=== PATIENT | female | born 1960 | race Caucasian/White ===

== ENCOUNTER 2022-07-31 07:38 | Inpatient (IN) | payer MEDICAID ==
[~2022-07-31 07:38] MED LIST: Bupivacaine 0.5% 50 ML MDV ONE; Dexamethasone 4 MG/ML SDV ONE; Glycopyrrolate 0.2 MG/ML 5 ML MDV ONE; Lidocaine 1% with EPINEPHrine 1:100,000 50 ML MDV ONE; Meropenem 500 MG SDV ONE; Neostigmine Methylsulfate 1 MG/ML 5 ML Syringe ONE; Ondansetron 4 MG/2 ML SDV ONE; Propofol 200 MG/20 ML SDV ONE; Rocuronium 50 MG/5 ML Vial ONE; Succinylcholine 200 MG/10 ML MDV ONE; fentaNYL 100 MCG/2 ML SDV ONE; fentaNYL 250 MCG/5 ML SDV ONE
[2022-07-31] MEDS ORDERED: cefOXitin 2 GM in Sodium Chloride 0.9% 50 ML IV ONE (08:00)
[2022-07-31] MEDS ORDERED: Dextrose 5%-Lactated Ringers 1,000 ML IV SCH (08:00)
[2022-07-31] MEDS ORDERED: Naloxone 0.4 MG/ML SDV IVPUSH PRN (09:00)
[2022-07-31] MEDS ORDERED: Ketamine 15 MG in Sodium Chloride 0.9% 19.85 ML IV SCH (09:15)
[2022-07-31] MEDS ORDERED: Ketamine 500 MG/5 ML MDV IV SCH (09:15)
[2022-07-31] MEDS ORDERED: Midazolam 1 MG/ML 2 ML SDV ONE (10:01)
[2022-07-31] MEDS ORDERED: fentaNYL 250 MCG/5 ML SDV ONE (10:23)
[2022-07-31] MEDS ORDERED: Rocuronium 50 MG/5 ML Vial ONE (10:23)
[2022-07-31] MEDS ORDERED: Meropenem 500 MG SDV IRR ONE (10:58)
[2022-07-31] MEDS ORDERED: Lactated Ringers 1,000 ML ONE ×2 (11:05→11:43)
[2022-07-31] MEDS ORDERED: Sodium Chloride 0.9% 10 ML ONE (11:05)
[2022-07-31] MEDS ORDERED: Scopolamine 1.5 MG Transdermal Patch ONE (12:12)
[2022-07-31] MEDS ORDERED: Meperidine PF 100 MG/ML Syringe IM PRN (14:18)
[2022-07-31] MEDS ORDERED: Ondansetron 4 MG/2 ML SDV IVPUSH PRN (15:00)
[2022-07-31] MEDS ORDERED: diphenhydrAMINE 50 MG/ML SDV IVPUSH PRN (15:00)
[2022-07-31] MEDS ORDERED: Pantoprazole 40 MG Vial IVPUSH SCH (16:00)
[2022-07-31] MEDS: Acetaminophen 325 MG Tab PO SCH ×2 (16:55→21:24)
[2022-07-31] MEDS: cefOXitin 2 GM in Sodium Chloride 0.9% 50 ML IV SCH ×2 (16:55→21:22)
[2022-07-31] MEDS: fentaNYL 2,500 MCG in Sodium Chloride 0.9% 200 ML EPIDUR SCH (17:06)
[2022-07-31] MEDS: Dextrose 5%-Lactated Ringers 1,000 ML IV SCH (19:18)
[2022-07-31] MEDS: Naloxone 0.4 MG/ML SDV IV PRN (19:18)
[2022-07-31] MEDS: Tamsulosin 0.4 MG Cap.ER PO SCH (20:01)
[2022-08-01] MEDS: Dextrose 5%-Lactated Ringers 1,000 ML IV SCH ×2 (02:15→22:36)
[2022-08-01] MEDS: Naloxone 0.4 MG/ML SDV IV PRN (02:15)
[2022-08-01] MEDS: hydrOXYzine HCL 100 MG/2 ML SDV IM PRN ×2 (02:25→07:27)
[2022-08-01] MEDS: cefOXitin 2 GM in Sodium Chloride 0.9% 50 ML IV SCH ×4 (04:18→21:51)
[2022-08-01] MEDS: Acetaminophen 325 MG Tab PO SCH ×4 (05:21→21:51)
[2022-08-01] MEDS ORDERED: Dextrose 5%-Lactated Ringers 1,000 ML IV SCH (08:00)
[2022-08-01] MEDS: fentaNYL 2,500 MCG in Sodium Chloride 0.9% 200 ML EPIDUR SCH (08:46)
[2022-08-01] MEDS ORDERED: Dextrose 5%-Lactated Ringers 1,000 ML with Naloxone 0.4 MG IV SCH ×2 (09:15)
[2022-08-01] MEDS: Docusate Sodium 100 MG Cap PO SCH ×2 (09:29→20:15)
[2022-08-01] MEDS: Bisacodyl 5 MG Tab PO SCH ×2 (09:30→20:15)
[2022-08-01] MEDS ORDERED: Naloxone 0.4 MG/ML SDV IVPUSH PRN (11:28)
[2022-08-01] MEDS ORDERED: Naloxone 0.4 MG/ML SDV IV PRN (11:48)
[2022-08-01] MEDS ORDERED: NALOXONE IV SCH ×2 (12:00)
[2022-08-01] MEDS ORDERED: DEXTROSE 5% IV SCH ×2 (12:00)
[2022-08-01] MEDS ORDERED: LACTATED RINGERS IV SCH ×2 (12:00)
[2022-08-01] MEDS: Pantoprazole 40 MG Tab.CR PO SCH (16:58)
[2022-08-01] MEDS: Tamsulosin 0.4 MG Cap.ER PO SCH (20:15)
[2022-08-02] MEDS: hydrOXYzine HCL 100 MG/2 ML SDV IM PRN (01:17)
[2022-08-02] MEDS: Acetaminophen 325 MG Tab PO SCH ×3 (03:27→20:22)
[2022-08-02] MEDS ORDERED: Bupivacaine 0.5% 30 ML SDV ONE (06:35)
[2022-08-02] MEDS ORDERED: Meropenem 500 MG SDV ONE (06:35)
[2022-08-02] MEDS ORDERED: Lidocaine 1% with EPINEPHrine 1:100,000 50 ML MDV ONE (06:35)
[2022-08-02] MEDS ORDERED: HYDROmorphone/Normal Saline 6 MG/30 ML PCA Vial IV PRN (06:56)
[2022-08-02] MEDS ORDERED: Naloxone 0.4 MG/ML SDV IV PRN (07:00)
[2022-08-02] MEDS ORDERED: Ropivacaine 32 ML, dexAMETHasone 8 MG, EPINEPHrine 0.4 MG, Sodium Chloride 0.9% 45.6 ML NERVRT SCH ×4 (07:15)
[2022-08-02] MEDS ORDERED: Propofol 200 MG/20 ML SDV ONE ×2 (07:26→07:45)
[2022-08-02] MEDS: Pantoprazole 40 MG Tab.CR PO SCH (10:55)
[2022-08-02] MEDS: Docusate Sodium 100 MG Cap PO SCH ×2 (10:55→20:23)
[2022-08-02] MEDS: Bisacodyl 5 MG Tab PO SCH ×2 (10:56→20:23)
[2022-08-02] MEDS: Dextrose 5%-Lactated Ringers 1,000 ML IV SCH (19:46)
[2022-08-02] MEDS: Tamsulosin 0.4 MG Cap.ER PO SCH (20:23)
[2022-08-03] MEDS: Acetaminophen 325 MG Tab PO SCH ×4 (01:22→20:05)
[2022-08-03] MEDS ORDERED: Ondansetron 4 MG Tab.DIS PO PRN (07:17)
[2022-08-03] MEDS: Pantoprazole 40 MG Tab.CR PO SCH (07:21)
[2022-08-03] MEDS: Nicotine 14 MG/24 Hr Patch TRDERM SCH (09:02)
[2022-08-03] MEDS: Bisacodyl 5 MG Tab PO SCH ×2 (09:02→20:06)
[2022-08-03] MEDS: Docusate Sodium 100 MG Cap PO SCH ×2 (09:02→20:06)
[2022-08-03] MEDS: traMADol 50 MG Tab PO PRN ×3 (09:07→21:36)
[2022-08-03] MEDS: hydrOXYzine HCl 50 MG/ML SDV IM PRN ×2 (10:59→15:59)
[2022-08-03] MEDS: DULoxetine 30 MG Cap PO SCH (20:05)
[2022-08-03] MEDS: Tamsulosin 0.4 MG Cap.ER PO SCH (20:07)
[2022-08-04] MEDS: Acetaminophen 325 MG Tab PO SCH ×2 (01:06→07:33)
[2022-08-04] MEDS: traMADol 50 MG Tab PO PRN (07:32)
[2022-08-04] MEDS: Pantoprazole 40 MG Tab.CR PO SCH (07:32)
[2022-08-04 07:37] VITALS: BP 123/69; PULSE 62
[2022-08-04] MEDS: Docusate Sodium 100 MG Cap PO SCH (08:31)
[2022-08-04] MEDS: DULoxetine 30 MG Cap PO SCH (08:31)
[2022-08-04] MEDS: Bisacodyl 5 MG Tab PO SCH (08:31)
[2022-08-04] MEDS: Nicotine 14 MG/24 Hr Patch TRDERM SCH (08:32)
== END 2022-08-04 10:05 | disposition home or self-care (01) | DRG 331 ==
LOC: JP.SDS 07:38 → JP.ICU 13:23 → JP.MS 08-01 11:50
PROVIDERS: ADMIT Surgery; ATTEND Surgery
PROC: 0DBM0ZZ Excision of Descending Colon, Open Approach (ICD-10-PCS; principal; 2022-07-31)
PROC: 0DBP0ZZ Excision of Rectum, Open Approach (ICD-10-PCS; 2022-07-31)
PROC: 0UB00ZZ Excision of Right Ovary, Open Approach (ICD-10-PCS; 2022-07-31)
PROC: 0UB50ZZ Excision of Right Fallopian Tube, Open Approach (ICD-10-PCS; 2022-07-31)
PROC: 3E0M05Z Introduction of Adhesion Barrier into Peritoneal Cavity, Open Approach (ICD-10-PCS; 2022-07-31)
DX: K57.32 Diverticulitis of large intestine without perforation or abscess without bleeding (principal); N83.201 Unspecified ovarian cyst, right side; R41.0 Disorientation, unspecified; K21.9 Gastro-esophageal reflux disease without esophagitis; E03.9 Hypothyroidism, unspecified; F17.210 Nicotine dependence, cigarettes, uncomplicated; M35.00 Sjogren syndrome, unspecified; E78.5 Hyperlipidemia, unspecified; I69.398 Other sequelae of cerebral infarction; G93.89 Other specified disorders of brain; F32.9 Major depressive disorder, single episode, unspecified; Z85.3 Personal history of malignant neoplasm of breast; Z79.899 Other long term (current) drug therapy; Z79.82 Long term (current) use of aspirin; Z79.890 Hormone replacement therapy
CPT/HCPCS: 88305; 88307; A9270-GY; C9113; J0131; J0171; J0330; J0694; J1100; J1170; J2020; J2175; J2185; J2250; J2310; J2405; J2704; J2710; J2795; J3010; J3410; J3490; J7050; J7120; J7121

== ENCOUNTER 2024-10-04 07:29 | Day surgery (SDC) | payer MEDICARE ==
[2024-10-04] MEDS: Lactated Ringers 1,000 ML IV SCH (08:21)
[2024-10-04] MEDS ORDERED: Propofol 200 MG/20 ML SDV ONE (08:50)
[2024-10-04] MEDS ORDERED: fentaNYL 50 MCG/ML SDV ONE (08:50)
[2024-10-04] MEDS ORDERED: Midazolam 1 MG/ML 2 ML SDV ONE (08:50)
[2024-10-04 10:19] VITALS: BP 98/59; PULSE 55
== END 2024-10-04 10:38 | disposition home or self-care (01) ==
LOC: JP.SDS 07:29
PROVIDERS: ATTEND Surgery
DX: K29.50 Unspecified chronic gastritis without bleeding (principal); K22.89 Other specified disease of esophagus; K21.9 Gastro-esophageal reflux disease without esophagitis
CPT/HCPCS: 00731; 43239; 88305; J2250; J2704; J3010; J7120